=== PATIENT | male | born 1940 | race Caucasian/White ===

== ENCOUNTER 2016-10-21 22:06 | Inpatient (IN) | payer OTHER ==
[~2016-10-21] VITALS: Ht 180.3 cm; Wt 88.0 kg
[~2016-10-21 22:06] MED LIST: ASPIR LOW81 MG PO; ATENOLOL50 MG PO; B COMPLEX; CARDURA2 MG PO; COMBIVENT1 AR1 IH; COR200 PO; COZAAR100 MG PO; FISH OIL; HCTZ PO; HUMALOG PEN100 U/ML; INVOKANA300 MG PO; JANUVIA100 M1 PO; LEVAQUIN750 MG/150 IV; LIPI20 PO; MAGNESIUM; MULTI VITAMINS1 TA1 PO; MYCP TOP; NASONEX0.05 MG/Ac; NIASPAN500 MG PO; PLA75 PO; PROT40I IV; STARLIX120 MG PO; VAN1PM IV; VITAMIN D32000 I2 PO; XARELTO20 M1 PO; ZOS3PM IV
--- NOTE | 2016-10-21 22:35 | NUR ---
BIB W/ C/O 3 DAYS OF GENERALIZED WEAKNESS, "EXHAUSTION" & SLEEPING ALL DAY. PT HAS HAD A COUGH X 2 WEEKS, PRODUCTIVE OF YELLOWISH BROWN SPUTUM. PT IS FORMER SMOKER X 35 YEARS, QUIT IN 2000 AFTER CARDIAC BYPASS. PT C/O CONSTANT SOB X 3-4 DAYS, PER "HE CAN JUST BE SITTING THERE TALKING & GET OUT OF BREATH." PT C/O LT LEG/FOOT SWELLING & LT ANKLE PAIN SINCE THURSDAY. DENIES INJURY. WAS @ THE [employer] WHEN HE NOTICED IT. PT HAS CHRONIC PAIN LT BUTTOCK "FROM [place]" W/ RECURRENT ABSCESS WHICH HAS REQUIRED SURGICAL DRAINAGE IN THE PAST. PT HAS SMALL LESS THAN DIME-SIZED SCAB LT INNER BUTTOCK APPROX 1-2" FROM RECTUM.
--- NOTE | 2016-10-21 22:41 | NUR ---
MSE BY DR. STONER.
--- NOTE | 2016-10-21 22:59 | NUR ---
PT GIVEN URINAL TO PROVIDE URINE SAMPLE.
[2016-10-21 23:11] LABS: PLATELET COUNT 161 x10^3mcL (130-400)
[2016-10-21 23:14] LABS: BASOPHIL % 0 % (0-2); RED CELL DISTRIBUTION WIDTH 18.6 % (11.5-14.5)
[2016-10-21 23:16] LABS: CALCIUM 9.3 mg/dL (8.5-10.1); CARBON DIOXIDE 25.9 mmol/L (21-32); CHLORIDE SERUM 116 mmol/L (98-107); CREATININE SERUM 1.7 mg/dL (0.7-1.3); GLUCOSE SERUM 263 mg/dL (74-106); POTASSIUM SERUM 3.5 mmol/L (3.5-5.1); SODIUM SERUM 157 mmol/L (136-145)
[2016-10-21 23:21] LABS: ALKALINE PHOSPHATASE 134 U/L (46-116); ALT/SGPT 40 U/L (16-63); AST/SGOT 33 U/L (15-37); BILIRUBIN TOTAL 0.5 mg/dL (0.20-1.00); TOTAL PROTEIN, SERUM 6.9 g/dL (6.4-8.2)
--- NOTE | 2016-10-21 23:22 | NUR ---
DR. STONER @ BEDSIDE DISCUSSING CBC RESULTS W/ PT & .
--- NOTE | 2016-10-21 23:29 | NUR ---
SALINE LOCK PLACED, TYPE & CROSS DRAWN.
[2016-10-21 23:32] LABS: CK-MB 0.8 ng/mL (0-3.6)
--- NOTE | 2016-10-21 23:45 | NUR ---
LEFT FOR THE NIGHT.
[2016-10-21 23:49] LABS: ALBUMIN 2.8 g/dL (3.4-5.0)
[2016-10-22] VITALS (9 sets, daily range): BP systolic 102–128; BP diastolic 40–52
--- NOTE | 2016-10-22 00:27 | NUR ---
BILAT NARES SWABBED FOR MRSA SCREENING.
[2016-10-22 00:30] LABS: rbc morphology (normal/abnorm) ABNORMAL (NORMAL)
--- NOTE | 2016-10-22 00:39 | NUR ---
CALLED [facility] @ [phone] TO COMPLETE PT'S MED REC. PT USES [facility].
[2016-10-22] MEDS ORDERED: COMINH INH (00:42)
[2016-10-22] MEDS ORDERED: ATORVASTATIN CA40 M1 PO (00:43)
[2016-10-22] MEDS ORDERED: LOSARTAN POTAS100 M1 PO (00:45)
[2016-10-22] MEDS ORDERED: HUMALOG100 U/ML SQ (00:45)
[2016-10-22] MEDS ORDERED: PHOSPHA 250 NEU1 TAB PO (00:46)
[2016-10-22] MEDS ORDERED: PACERONE200 MG PO (00:46)
[2016-10-22] MEDS ORDERED: TOPROL XL25 MG PO (00:46)
[2016-10-22] MEDS ORDERED: DOXAZOSIN MESYLA2 MG PO (00:46)
[2016-10-22] MEDS ORDERED: ATRNS6 INH (00:47)
[2016-10-22] MEDS ORDERED: VITAMIN D32000 I2 PO (00:47)
[2016-10-22] MEDS ORDERED: ALLEGRA ALLERG180 M1 PO (00:47)
[2016-10-22] MEDS ORDERED: JARDIANCE25 MG PO (00:47)
--- NOTE | 2016-10-22 01:19 | NUR ---
PT & SIGNED BLOOD CONSENT. BLOOD DOUBLE CHECKED W/ LAB & W/ LESLIE MONTERROSO. 1ST UNIT [facility] BEGUN, DONOR #[id number]
[2016-10-22 01:25] LABS: CHOLESTEROL/HDL RATIO 3.4
[2016-10-22 01:34] LABS: FREE T4 1.37 ng/dL (0.76-1.46); FREE THYROXINE INDEX 3.5 ug/dL (1.4-4.5); T4(THYROXINE) 9.8 ug/dL (4.7-13.3)
--- NOTE | 2016-10-22 01:34 | NUR ---
REPORT CALLED TO NATHAN.
--- NOTE | 2016-10-22 02:40 | NUR ---
BLOOD INFUSING WITHOUT SIGN OF REACTION. TO TELE ON MONITOR W/ LESLIE MONTERROSO.
--- NOTE | 2016-10-22 03:06 | NUR ---
PT AAOX4. LUNGS CTA ON RA. PT ARRIVED WITH BLOOD TRANSFUSING IN LAC, 20G. PT TOLERATING TRANFUSION WELL. ABD IS SOFT, ROUND, NON-TENDER, BS ACTIVE IN ALL FOUR QUADRANTS. PULSES PRESENT. THERE IS +2 PITTING EDEMA IN BOTH FEET. THE PT IS ON TELE 16 NSR WITH A BBB, HR 81. PT REQUESTED TO GET GLUCOSE CHECKED. BS 200. NOTIFIED DR. BOYD. DR BOYD. ORDERED TO GIVE 3 U REG INSULIN TO COVER. CALL LIGHT WITHIN REACH. WILL CONTINUE TO MONITOR.
--- NOTE | 2016-10-22 03:16 | NUR ---
CONSENT FOR BLOOD SIGNED AND IN CHART.
--- NOTE | 2016-10-22 04:17 | NUR ---
URINE SENT DOWN TO LAB
--- NOTE | 2016-10-22 04:20 | NUR ---
PT TROPONIN IS 0.461, DR. BOYD MADE AWARE, STATED THAT IT'S OK.
[2016-10-22 04:24] LABS: microscopic required? NO
[2016-10-22 04:33] LABS: urine erythrocyte NEGATIVE (NEGATIVE)
--- NOTE | 2016-10-22 05:09 | NUR ---
VITALS AFTER THE TRANSFUSION WAS COMPLETED AT 0507: 98.5, 74, 102/40 (70), 18, 96%
--- NOTE | 2016-10-22 06:24 | NUR ---
PT IS RESTING IN BED WITH NO SIGNS OF ACUTE DISTRESS. THE BED IS IN THE LOWEST POSITION AND THE CALL LIGHT IS WITHIN REACH. THE PT VOIDED A TOTAL OF 550 ML OF URINE IN THE URINAL. WILL ENDORSE TO MORNING SHIFT/.
[2016-10-22 08:06] LABS: CALCIUM 9.3 mg/dL (8.5-10.1); CARBON DIOXIDE 25.8 mmol/L (21-32); CHLORIDE SERUM 118 mmol/L (98-107); CREATININE SERUM 1.5 mg/dL (0.7-1.3); GLUCOSE SERUM 186 mg/dL (74-106); MAGNESIUM 2.7 mg/dL (1.8-2.4); PHOSPHOROUS 4.2 mg/dL (2.5-4.9); POTASSIUM SERUM 3.6 mmol/L (3.5-5.1)
[2016-10-22 08:09] LABS: BASOPHIL % 0 % (0-2); RED CELL DISTRIBUTION WIDTH 18.4 % (11.5-14.5)
[2016-10-22 08:12] LABS: PLATELET COUNT 139 x10^3mcL (130-400)
[2016-10-22 08:13] LABS: rbc morphology (normal/abnorm) ABNORMAL (NORMAL)
[2016-10-22 08:24] LABS: SODIUM SERUM 162 mmol/L (136-145)
--- NOTE | 2016-10-22 08:45 | NUR ---
DR ISABEL MADE AWARE OF PT'S TROP LEVEL AT 0.498,AND H/H OF7.4/24, DURING AM ROUNDS. PT IN NO DISTRESS,DENIES C.P.,NO SOB. REASSURED,REINFORCE USE OF CALL LIGHT AT BEDSIDE. MEDICAL TEAM SAW AND DISCUSSED PLAN OF CARE.
[2016-10-22 09:46] LABS: RED BLOOD CELLS 3.15 M/mm3 (4.52-5.90)
[2016-10-22 09:47] LABS: TOTAL IRON BINDING CAPACITY 358 ug/dL (250-450)
[2016-10-22 09:54] LABS: IRON 14 ug/dL (65-170)
[2016-10-22 11:44] LABS: T3 TOTAL 0.64 ng/mL
--- NOTE | 2016-10-22 20:00 | NUR ---
PATIENT AWAKE, ALERT, ORIENTED X4 IN BED. AT THE BEDSIDE. RESPIRATION EVEN AND UNLABORED, ON ROOM AIR. ONGOING 0.45% NS AT 100 CC/HR INFUSING WELL AT THE L AC. PRESENCE OF +2 EDEMA TO BLE. VOIDING FREELY, USES URINAL. GENERALIZED WEAKNESS. SKIN DRY AND INTACT. ON TELE #16. WILL CONTINUE TO MONITOR.
[2016-10-23 06:05] VITALS: BP 105/52
--- NOTE | 2016-10-23 06:12 | NUR ---
PATIENT RESTING IN BED. RESPIRATION EVEN AND UNLABORED, ON ROOM AIR. IV SITE NO SIGNS OF INFILTRATION. ASSISTED WITH NEEDS. SAFETY OBSERVED. PLACED CALL LIGHT WITHIN REACH AT ALL TIMES.
[2016-10-23 06:45] LABS: BASOPHIL % 0.5 % (0-2)
[2016-10-23 06:49] LABS: CALCIUM 9.1 mg/dL (8.5-10.1); CARBON DIOXIDE 25.8 mmol/L (21-32); CHLORIDE SERUM 122 mmol/L (98-107); CREATININE SERUM 1.3 mg/dL (0.7-1.3); GLUCOSE SERUM 148 mg/dL (74-106); MAGNESIUM 2.5 mg/dL (1.8-2.4); PHOSPHOROUS 3.6 mg/dL (2.5-4.9); POTASSIUM SERUM 3.7 mmol/L (3.5-5.1)
[2016-10-23 06:55] LABS: PLATELET COUNT 117 x10^3mcL (130-400); RED CELL DISTRIBUTION WIDTH 18.6 % (11.5-14.5)
[2016-10-23 06:57] LABS: SODIUM SERUM 163 mmol/L (136-145)
[2016-10-23 09:04] VITALS: BP 125/51
[2016-10-23 09:18] LABS: rbc morphology (normal/abnorm) ABNORMAL (NORMAL)
[2016-10-23 09:19] LABS: schistocyte (helmet cell) 1+
[2016-10-23 12:45] VITALS: BP 133/49
[2016-10-23 18:01] LABS: CALCIUM 8.7 mg/dL (8.5-10.1); CREATININE SERUM 1.3 mg/dL (0.7-1.3); GLUCOSE SERUM 198 mg/dL (74-106)
[2016-10-23 18:12] LABS: CHLORIDE SERUM 114 mmol/L (98-107); POTASSIUM SERUM 3.3 mmol/L (3.5-5.1); SODIUM SERUM 158 mmol/L (136-145)
[2016-10-23 18:13] VITALS: BP 120/43
--- NOTE | 2016-10-23 20:22 | NUR ---
PT CURRENTLY RESTING IN BED, NO ACUTE DISTRESS. A/O X4. TELE #16 SHOWING SINUS RHYTHM, DENIES CHEST PAIN. PULSES PALPABLE IN ALL EXTREMITIES, BLE EDEMA +2 NOTED. LUNG SOUNDS CTA BILATERALLY. BOWEL SOUNDS ACTIVE, LAST BM 10/20/16. VOIDING WELL. MILD GENERALIZED WEAKNESS NOTED, AMBULATORY. SKIN INTACT. DENIES PAIN AT THIS TIME. IV PATENT AND INTACT. BED IN LOWEST POSITION, SIDE RAILS UP X2, SCDS IN PLACE, CALL LIGHT WITHIN REACH. WILL CONTINUE TO MONITOR.
[2016-10-23 21:02] VITALS: BP 102/51
--- NOTE | 2016-10-24 01:49 | NUR ---
PT CURRENTLY RESTING IN BED, NO ACUTE DISTRESS. WILL CONTINUE TO MONITOR.
[2016-10-24 05:33] VITALS: BP 114/46
--- NOTE | 2016-10-24 06:00 | NUR ---
PT SLEPT PERIODICALLY THROUGHOUT NIGHT, NO ACUTE DISTRESS. ALL NEEDS MET AND ATTENDED TO. NO SIGNIFICANT CHANGES. IV PATENT AND INTACT. BED IN LOWEST POSITION, SIDE RAILS UP X2, SCDS IN PLACE, CALL LIGHT WITHIN REACH. WILL ENDORSE CARE TO ONCOMING NURSE.
[2016-10-24 06:36] LABS: CALCIUM 8.5 mg/dL (8.5-10.1); CARBON DIOXIDE 25.6 mmol/L (21-32); CHLORIDE SERUM 120 mmol/L (98-107); CREATININE SERUM 1.3 mg/dL (0.7-1.3); GLUCOSE SERUM 147 mg/dL (74-106); MAGNESIUM 2.1 mg/dL (1.8-2.4); PHOSPHOROUS 2.8 mg/dL (2.5-4.9); POTASSIUM SERUM 3.2 mmol/L (3.5-5.1); SODIUM SERUM 155 mmol/L (136-145)
[2016-10-24 07:15] LABS: BASOPHIL % 0.2 % (0-2)
[2016-10-24 07:24] LABS: PLATELET COUNT 110 x10^3mcL (130-400); RED CELL DISTRIBUTION WIDTH 19.3 % (11.5-14.5)
--- NOTE | 2016-10-24 07:25 | NUR ---
AAO X4.DENIES ANY PAIN/DISCOMFORT.LUNGS CLEAR.ON SR ON THE MONITOR.IVF 1/2 NS @ 100 ML/HR INFUSING WELL.ALSO D5W AT 50 ML/HR INFUSING WELL.CALL LIGHT WITHIN REACH.INSTRUCTED TO CALL FOR ANY PAIN/DISCOMFORT.PT VERBALIZES UNDERSTANDING.WILL CONTINUE TO MONITOR.
[2016-10-24 07:26] LABS: rbc morphology (normal/abnorm) ABNORMAL (NORMAL); schistocyte (helmet cell) 1+
--- NOTE | 2016-10-24 08:30 | NUR ---
AND MEDICINE TEAM AT BEDSIDE.INFORMED PT THAT HE WILL STAY TODAY AND HE WILL HAVE EGD AND COLONOSCOPY TOMORROW.PT COOPERATIVE WITH THE PLAN OF CARE.
[2016-10-24 09:27] VITALS: BP 112/49
--- NOTE | 2016-10-24 10:28 | NUR ---
MOVIPREP STARTED ORDERED.
--- NOTE | 2016-10-24 10:30 | NUR ---
CONSENT SIGNED FOR EGD AND COLONOSCOPY.PRE OP CHECKLIST STARTED.
[2016-10-24 13:57] VITALS: BP 121/54
[2016-10-24 16:58] VITALS: BP 119/50
--- NOTE | 2016-10-24 17:47 | NUR ---
PT HAD A TOTAL OF 6 BM. BM IS NOW LIQUID BLACK STOOL PER PT.
--- NOTE | 2016-10-24 18:26 | NUR ---
no significant change noted.will endorse to next shift.
--- NOTE | 2016-10-24 20:19 | NUR ---
SHIFT ASSESSMENT DONE, AAO X4 VERBAL NOT IN DISTRESS, WITH GEN WEAKNESS PALE LOOKING, NO ACTIVE BLEEDING, IVF D5W @ 50CC/HR IV ACCESS @ LT HAND PATENT NON INFIL, PT ON BOWEL PREP FOR EGD IN AM HAS BM X5 STILL NOT CLEAR, WILL CONT TO GIVE MOVIPREP, SR IN THE MONITOR TELE #16 WITH OCC PVC'S NO CP OR PRESSURE, FAMILY AT BEDSIDE FOR VISIT, CONT TO MONITOR AND PROCEED TO CURRENT PLAN OF CARE.
[2016-10-24 21:01] VITALS: BP 109/45
--- NOTE | 2016-10-24 22:45 | NUR ---
PT NOTED HAVING TRIGEMINY WITH PVC'S IN THE MONITOR, DENIES CP OR PRESSURE, ASYMTOMATIC BP 94/62 AMBULATES TO THE BATHROOM HAVING BM ON BOWEL PREP, MD AWARE NNO AT THIS TIME.
[2016-10-25 06:23] VITALS: BP 105/49
--- NOTE | 2016-10-25 06:34 | NUR ---
BM LIGHT BROWN WATERY, ON BOWEL PREP, DENIES PAIN NOT IN DISTRESS, SLEEPING INTERMITTENT AT NIGHT, SR WITH BBB IN THE MONITOR, IVF INFUSING WELL, STILL WITH GEN WEAKNESS, CONT TO MONITOR.
--- NOTE | 2016-10-25 07:16 | NUR ---
PT DOWN VIA BED TO GI LAB FOR COLONOSCOPY, REPORT GIVEN TO GI RN.
[2016-10-25 07:22] LABS: CALCIUM 8.2 mg/dL (8.5-10.1); CARBON DIOXIDE 21.3 mmol/L (21-32); CHLORIDE SERUM 116 mmol/L (98-107); GLUCOSE SERUM 142 mg/dL (74-106); MAGNESIUM 1.9 mg/dL (1.8-2.4); PHOSPHOROUS 2.6 mg/dL (2.5-4.9); POTASSIUM SERUM 3.3 mmol/L (3.5-5.1); SODIUM SERUM 150 mmol/L (136-145)
--- NOTE | 2016-10-25 07:30 | NUR ---
GOT REPORT FROM [employer]. PT WAS TAKEN TO GI LAB FOR EGD AND COLONOSCOPY.
[2016-10-25 07:47] LABS: BASOPHIL % 0.3 % (0-2)
[2016-10-25 07:50] LABS: PLATELET COUNT 99 x10^3mcL (130-400); RED CELL DISTRIBUTION WIDTH 19.3 % (11.5-14.5)
[2016-10-25 07:54] LABS: rbc morphology (normal/abnorm) ABNORMAL (NORMAL)
[2016-10-25 07:55] LABS: schistocyte (helmet cell) 1+
[2016-10-25 07:56] LABS: ovalocyte/elliptocyte 1+
[2016-10-25 09:00] VITALS: BP 128/90
--- NOTE | 2016-10-25 09:02 | NUR ---
PT BACK FROM PROCEDURE FOR EGD AND COLONOSCOPY. PT IS AWAKE, ALERT, ORIENTED X 3. PT NO COMPLAIN OF PAIN AT THIS TIME. PT STATED FEELING BETTER COMPARED YESTERDAY. PT BREATHING ON O2 2L VIA NC, EVEN, UNLABORED. PT'S VS CHECKED: BP 128/90, HR 68 BPM, O2 SAT 96% ON O2 2L VIA NC. TEMP 97.9. WILL CONITNUE TO MONITOR.
--- NOTE | 2016-10-25 10:46 | NUR ---
PT'S CAME AT BED SIDE. ASSIST PT GET OUT OF BED, SITTING ON CHAIR. PT STATED MILD DIZZINESS. O2 SAT 99% ON RA.
[2016-10-25 12:13] VITALS: BP 122/47
--- NOTE | 2016-10-25 16:04 | NUR ---
PHYSICAL THERAPY DAILY NOTES CO-SIGN All documentation done by the Dam[employer] for 10/25/16 has been reviewed. I agree with the documentation. Reviewed/Co-Signed by: Jaya Melissa PT Documentation Done by:SANDRA MARI HEMODIALYSIS TECHNICIAN POC REVIEWED W/ HEMODIALYSIS TECHNICIAN; WILL BENEFIT W/ P.T. DURING ACUTE STAY.
[2016-10-25 17:25] VITALS: BP 116/48
--- NOTE | 2016-10-25 18:29 | NUR ---
THERE IS TWO SPOTS SKIN ABRASION ON PT'S LEFT BUTTOCK. SWELLING AND REDNESS ON LEFT ANKLE THAT DR. NERI IS AWARE. PICTURES TAKEN. PT SITTING AT BED SIDE EATING DINNER. PT NO COMPLAIN OF PAIN. PT BREATHING ON RA, EVEN, UNLABORED. REMIND PT TO ELEVATE LLE WHEN HE IS BACK TO BED. IV SITE PATENT, INTACT. IVF 1/2NS W/ 20MEQ KCL INFUSING AT 100 ML/ HR PER ORDER.
--- NOTE | 2016-10-25 20:41 | NUR ---
RECEIVED IN BED AWAKE VERBAL DENIES PAIN S/P COLONOSCOPY / EGD WITH CAUTERIZATION AND CLIPPED IN THE CECUM, NO BLEEDING, NO DISTRESS, LUNGS CTA WITH GEN WEAKNESS AMBULATES WITH ASSIST, SR IN THE MONITOR WITH BBB OCC PVC'S AND ELEVATED TWAVE NO CP OR PRESSURE, LT ANKLE WITH REDNESS AND SWELLING WARM TO TOUCH, TRACED EDEMA TO RLE, PALPABLE PERIPHERAL PULSES, IVF 1/2 NS +20K+ INFUSING @ 100CC IV ACCESS @ LH PATENT NON INFIL, SHIFT ASSESSMENT DONE, ATTENDED NEEDS, DR WEIR AWARE OF PT'S LT ANKLE REDNESS, AWAITING FOR ORDERS CONT TO MONITOR.
[2016-10-25 21:45] VITALS: BP 114/48
[2016-10-26] VITALS (7 sets, daily range): BP systolic 96–126; BP diastolic 32–60
--- NOTE | 2016-10-26 02:27 | NUR ---
ASLEEP NO S/SX OF PAIN OR DISCOMFORTS, NOT ON DISTRESS, IVF CHANGED BACK TO D5W @ 80CC/HR IV ACCESS @ LH PATENT NON INFIL, SCD'S ON FOR DVT PROPHYLAXIS CONT TO MONITOR AND PROCEED TO CURRENT PLAN OF CARE.
[2016-10-26 06:41] LABS: MAGNESIUM 1.7 mg/dL (1.8-2.4); PHOSPHOROUS 2.2 mg/dL (2.5-4.9)
[2016-10-26 06:50] LABS: CALCIUM 8.2 mg/dL (8.5-10.1); CARBON DIOXIDE 18.8 mmol/L (21-32); CHLORIDE SERUM 113 mmol/L (98-107); CREATININE SERUM 0.9 mg/dL (0.7-1.3); GLUCOSE SERUM 180 mg/dL (74-106); POTASSIUM SERUM 3.5 mmol/L (3.5-5.1); SODIUM SERUM 145 mmol/L (136-145)
[2016-10-26 06:58] LABS: BASOPHIL % 0.1 % (0-2)
[2016-10-26 07:01] LABS: PLATELET COUNT 79 x10^3mcL (130-400); RED CELL DISTRIBUTION WIDTH 20.2 % (11.5-14.5)
--- NOTE | 2016-10-26 07:27 | NUR ---
NO SIGNIFICANT CHANGES DURING THE SHIFT, LT HAND IV ACCESS INFIL, TRIED TO GET NEW IV ACCESS BUT IN NO SUCCESS PT IS A HARD STICK, ENDORSED TO INCOMING SHIFT FOR F/U, DUE MEDS GIVEN, PT AMBULATED TO THE BATHROOM SLOW BUT STEADY BALANCE CONT TO MONITOR.
--- NOTE | 2016-10-26 07:36 | NUR ---
PT SEEN REST ON BED. PT COMPLAIN OF SOB AND COLD. I PROVIDED O2 2L VIA NC TO MANAGE SOB. WARM BLANKET PROBIDED. PT'S IV SITE IS OUT, NEED TO REINSERT NEW IV.
--- NOTE | 2016-10-26 07:55 | NUR ---
[employer] REPORT PT FEELING VERY WEAK AND UNABLE SITTING UP. CHECKED PT. PT WAS UNABLE TO REMAIN SITTING POSITION BY HIMSELF, SOB NOTED, INCREASED O2 TO 3L VIA NC. PT'S VS CHECKED 101/47, HR 96 BPM, TEMP 102.9. O2 SAT 100% ON O2 3L VIA NC. TYLENOL 650 MG GIVEN, AND START COOLING MEASURES. WILL CONTINUE TO MONITOR.
--- NOTE | 2016-10-26 08:10 | NUR ---
PROMOTIONAL REPRESENTATIVE REPORTED PT'S HR RHYTHM RUNNING V-TACH. CHECKED PT. PT IS TRING TO SIT UP BUT UNABLE TO SIT UP BY HIMSELF 2/2 WEAKNESS. PT IS ON AWKWARD POSITION AND TRYING TO REPOSITION SELF. ASSISTED PT REPOSITION AND PUT O2 BACK ON. PT DENIED CHEST PAIN BUT COMPLAIN OF WHOLE BODY ACHING AND DISCOMFORT. MADE CHARGE NURSE AWARE AND DR. NERI AWARE. KEEP MONITORING PT.
--- NOTE | 2016-10-26 12:53 | NUR ---
MADE DR. NERI AWARE PT'S BP 96/32 (66), HR 84 BPM, THE LOWEST ONE BP 88/35 MAP 52. PUT PT ON [place] POSITION, WILL RECHECK BP .
--- NOTE | 2016-10-26 15:24 | NUR ---
CHECKED PT'S TEMP 102.2. TYLENOL GIVEN, COOLING MEASURES REMAINING. WILL CONTINUING TO MONITOR.
--- NOTE | 2016-10-26 18:40 | NUR ---
PT'S AT BED SIDE. RECHECKED PT'S TEMP 99.5, COOLING MEASURES REMAINING. PT NO COMPLAIN OF PAIN AT THIS TIME. PT BREATHING ON O2 2L VIA NC AT THIS TIME. EVEN, UNLABOORED. IV SITE PATENT, INTACT. IVF NS 100 ML/HR IS INFUSING PER ORDER.
--- NOTE | 2016-10-26 19:58 | NUR ---
PT IS A/O X4, VERBAL RESPONSIVE, ABLE TO TELL WHAT HE NEEDS ,LUNG SOUND CLEAR BILATERAL, NO COUGH, NO SOB, PT IS ON 2L/MIN O2 VIA NC. PO2 96%, PT IS ON TELE 16, NSR, BOWEL SOUND PRESENT ALL 4 QUADRANTS, NO DISTENTION, NO TENDER. PEDAL PULSE PRESENT BOTH FEET, RIGHT ANKLE REDNESS AND SWELLING, ALL ADLS ASSIST, IV AT LEFT FA, NO LEAKING, NO INFILTRATION. PT APPEARING VERY WEAK AT THIS TIME, ALL ADLS ASSIST. ALL NEED MET, CALL LIGHT IN REACH, WILL CONTINUE TO MONITOR.
--- NOTE | 2016-10-27 00:24 | NUR ---
PT HAD FEVER 101.1 AT 2200, TYLENOL WAS GIVEN AT 2218, AND ALSO APPLY THE COOLING MEASURE, RECHECK THE TEMP. PT'S TEMP STILL 101.1, TALKED TO DR. OLIVARES, ASLO MENSTION ABOUT THE LEFT ANKLE REDNES AND SWELLING, MADE AWARE, WAITING FOR NEW ORDER.
--- NOTE | 2016-10-27 02:22 | NUR ---
RECHECK THE TEMP 99.3, INFORM DR. OLIVARES. KEEPING THE COOLING MEASURE ON THE PT. WILL CONTNIUE TO MONITOR THE PT.
--- NOTE | 2016-10-27 05:20 | NUR ---
PT IS SLEEPING, AWAKE BY TOUCH, DENY ANY RESPIRATORY DISTESS, DENY ANY PAIN OR DISCOMFORT, IV AT RIGHT WIRST, NO LEAKING, NO INFILTRATION, ALL ADLS ASSIST, ALL NEED MET, CALL LIGHT IN REACH, WILL CONTINUE TO MONITOR.
[2016-10-27 05:48] LABS: CARBON DIOXIDE 22.4 mmol/L (21-32); CHLORIDE SERUM 113 mmol/L (98-107); CREATININE SERUM 1.1 mg/dL (0.7-1.3); GLUCOSE SERUM 188 mg/dL (74-106); MAGNESIUM 2.2 mg/dL (1.8-2.4); PHOSPHOROUS 2.5 mg/dL (2.5-4.9); SODIUM SERUM 142 mmol/L (136-145)
[2016-10-27 05:56] LABS: POTASSIUM SERUM 2.9 mmol/L (3.5-5.1)
--- NOTE | 2016-10-27 06:02 | NUR ---
CALLED AND INFORM DR. YORK REGARDING THE POTASSIUM 2.9, MADE AWARE, WAITIN FOR NEW ORDER
[2016-10-27 06:13] VITALS: BP 102/53
[2016-10-27 06:17] LABS: BASOPHIL % 0 % (0-2)
--- NOTE | 2016-10-27 06:33 | NUR ---
REPORT TO DR. NERI. REGARDING PT HGB 6.8, DR. CHOI AWARE, WILL CONTINUE TO MONTIOR THE PT.
[2016-10-27 06:46] LABS: rbc morphology (normal/abnorm) ABNORMAL (NORMAL)
[2016-10-27 06:59] LABS: PLATELET COUNT 84 x10^3mcL (130-400)
[2016-10-27 07:00] LABS: RED CELL DISTRIBUTION WIDTH 22.1 % (11.5-14.5)
--- NOTE | 2016-10-27 08:00 | NUR ---
RECEIVED PT IN BED ALERT AND ORIENTED X4. TELE #16, NSR WITH BBB. DENIES CHEST PAIN. BREATHING EVEN AND UNLABORED WITH O2 VIA NC AT 2L. LUNG SOUNDS CLEAR. SOB NOTED WITH EXERTION. DENIES ANY GI UPSET. VOIDS FREELY. AMBULATORY WITH SLOW STEADY GAIT. 2+ EDEMA NOTED TO R FOOT AND LLE. REDNESS NOTED TO L ANKLE AREA. SMALL HEALING WOUND NOTED TO L BUTTOCKS. INSTRUCTED TO USE CALL LIGHT WHEN IN NEED OF ANY ASSISTANCE.
[2016-10-27 09:24] VITALS: BP 102/61
[2016-10-27] MEDS ORDERED: CIPRO500 MG PO (09:59)
[2016-10-27] MEDS ORDERED: LAC PO (10:00)
[2016-10-27 10:31] VITALS: BP 102/61
[2016-10-27] MEDS ORDERED: NATURAL IRON65 MG PO (13:59)
--- NOTE | 2016-10-27 14:57 | NUR ---
AFEBRILE. VITAL SIGNS STABLE. IV AND TELE DC'D. DISCHARGE INSTRUCTIONS AND PRESCRIPTIONS GIVEN AND EXPLAINED TO PT AND HIS , VERBALIZED UNDERSTANDING.
--- NOTE | 2016-10-27 15:13 | NUR ---
PT DISCHARGED HOME, BROUGHT OFF FLOOR VIA [facility] BY STUDENT.
== END 2016-10-27 15:10 | disposition home or self-care (01) | DRG 299 ==
LOC: ED 22:06 → DU 23:52
PROVIDERS: Emergency Medicine; Family Medicine; Internal Medicine; Internal Medicine Nephrology; ADMIT Family Medicine
PROC: 30233N1 Transfusion of Nonautologous Red Blood Cells into Peripheral Vein, Percutaneous Approach (ICD-10-PCS; 2016-10-22)
PROC: 0W3P8ZZ Control Bleeding in Gastrointestinal Tract, Via Natural or Artificial Opening Endoscopic (ICD-10-PCS; principal; 2016-10-25 07:30)
PROC: 0DB68ZX Excision of Stomach, Via Natural or Artificial Opening Endoscopic, Diagnostic (ICD-10-PCS; 2016-10-25 07:30)
DX: Q27.33 Arteriovenous malformation of digestive system vessel (principal); N17.0 Acute kidney failure with tubular necrosis; E43 Unspecified severe protein-calorie malnutrition; D62 Acute posthemorrhagic anemia; I24.8 Other forms of acute ischemic heart disease; E87.0 Hyperosmolality and hypernatremia; E87.2 Acidosis; K29.70 Gastritis, unspecified, without bleeding; K57.30 Diverticulosis of large intestine without perforation or abscess without bleeding; E86.0 Dehydration; E11.65 Type 2 diabetes mellitus with hyperglycemia; E11.21 Type 2 diabetes mellitus with diabetic nephropathy; I25.10 Atherosclerotic heart disease of native coronary artery without angina pectoris; J45.909 Unspecified asthma, uncomplicated; Z68.27 Body mass index [BMI] 27.0-27.9, adult; Z87.891 Personal history of nicotine dependence; Z86.73 Personal history of transient ischemic attack (TIA), and cerebral infarction without residual deficits; Z95.1 Presence of aortocoronary bypass graft; Z79.01 Long term (current) use of anticoagulants; Z79.82 Long term (current) use of aspirin; Z79.4 Long term (current) use of insulin
CPT/HCPCS: 43235; 45378; 82962; 83880; 84439; 94150; 97116-GP; 97530-GP; J0696; J1200; J1610; J1817; J1885; J2250; J2310; J2916; J3010; J3475; J3480; J3490; J7030; J7040; J7050; J7060; J7613; J7620; P9016; Q0092

== ENCOUNTER 2016-12-13 18:22 | Inpatient (IN) | payer OTHER ==
[~2016-12-13] VITALS: Ht 180.3 cm; Wt 83.5 kg
[~2016-12-13 18:22] MED LIST changes: +ALLEGRA ALLERG180 M1 PO; +ATORVASTATIN CA40 M1 PO; +ATRNS6 INH; +CIPRO500 MG PO; +COMINH INH; +DOXAZOSIN MESYLA2 MG PO; +HUMALOG100 U/ML SQ; +JARDIANCE25 MG PO; +LAC PO; +LOSARTAN POTAS100 M1 PO; +NATURAL IRON65 MG PO; +PACERONE200 MG PO; +PHOSPHA 250 NEU1 TAB PO; +TOPROL XL25 MG PO
[2016-12-13 19:24] LABS: PLATELET COUNT 138 x10^3mcL (130-400)
[2016-12-13 19:26] LABS: ALKALINE PHOSPHATASE 136 U/L (46-116); ALT/SGPT 41 U/L (16-63); AST/SGOT 39 U/L (15-37); BILIRUBIN TOTAL 0.67 mg/dL (0.20-1.00); CALCIUM 9.2 mg/dL (8.5-10.1); CARBON DIOXIDE 27.4 mmol/L (21-32); CHLORIDE SERUM 108 mmol/L (98-107); CREATININE SERUM 1.3 mg/dL (0.7-1.3); PHOSPHOROUS 3.8 mg/dL (2.5-4.9); POTASSIUM SERUM 3.1 mmol/L (3.5-5.1); SODIUM SERUM 148 mmol/L (136-145); TOTAL PROTEIN, SERUM 6.8 g/dL (6.4-8.2); URIC ACID 6.8 mg/dL (3.5-7.2)
[2016-12-13 19:28] LABS: ALBUMIN 2.9 g/dL (3.4-5.0); CHOLESTEROL 121 mg/dL (<200); HDL CHOLESTEROL 31 mg/dL (40-60)
[2016-12-13 19:29] LABS: GLUCOSE SERUM 461 mg/dL (74-106)
[2016-12-13 19:36] LABS: BASOPHIL % 0 % (0-2)
[2016-12-13 19:40] LABS: rbc morphology (normal/abnorm) ABNORMAL (NORMAL)
[2016-12-13] MEDS ORDERED: ATORVASTATIN CA40 M1 PO (20:00)
[2016-12-13] MEDS ORDERED: CARDURA2 MG PO (20:00)
[2016-12-13] MEDS ORDERED: NATEGLINIDE120 M1 PO (20:01)
[2016-12-13] MEDS ORDERED: JANUVIA100 M1 PO (20:01)
[2016-12-13] MEDS ORDERED: PACERONE200 MG PO (20:01)
[2016-12-13] MEDS ORDERED: LANTUS SOLOS100 U/M1 SC (20:02)
[2016-12-13] MEDS ORDERED: PHOSPHA 250 NEU1 TAB PO (20:02)
[2016-12-13] MEDS ORDERED: ALLEGRA ALLERG180 M1 PO (20:02)
[2016-12-13] MEDS ORDERED: COMINH INH (20:02)
[2016-12-13] MEDS ORDERED: D-20001 TAB PO (20:03)
[2016-12-13] MEDS ORDERED: ATRNS6 (20:03)
[2016-12-13] MEDS ORDERED: NOVI SQ (20:04)
[2016-12-13] MEDS ORDERED: MAGNESIUM OXID400 MG (20:04)
[2016-12-13 20:56] VITALS: BP 129/48
[2016-12-13 21:03] VITALS: Ht 180.3 cm; Wt 83.5 kg
[2016-12-13 21:09] LABS: FREE T4 1.47 ng/dL (0.76-1.46); FREE THYROXINE INDEX 4.6 ug/dL (1.4-4.5); T4(THYROXINE) 11.5 ug/dL (4.7-13.3)
[2016-12-13 21:10] LABS: T3 TOTAL 0.72 ng/mL
[2016-12-13 21:50] LABS: microscopic required? YES; urine erythrocyte NEGATIVE (NEGATIVE)
[2016-12-13 21:51] VITALS: BP 129/48
[2016-12-13 23:19] LABS: BASOPHIL % 0.1 % (0-2)
[2016-12-13 23:34] LABS: PLATELET COUNT 129 x10^3mcL (130-400)
[2016-12-14 00:05] LABS: rbc morphology (normal/abnorm) ABNORMAL (NORMAL)
[2016-12-14 00:06] LABS: schistocyte (helmet cell) 1+; target cell (codocyte) 2+
[2016-12-14 05:44] VITALS: BP 118/54
[2016-12-14 06:34] LABS: CALCIUM 9.3 mg/dL (8.5-10.1); CARBON DIOXIDE 27.3 mmol/L (21-32); CHLORIDE SERUM 113 mmol/L (98-107); CREATININE SERUM 1.4 mg/dL (0.7-1.3); MAGNESIUM 2.2 mg/dL (1.8-2.4); PHOSPHOROUS 4.2 mg/dL (2.5-4.9); SODIUM SERUM 155 mmol/L (136-145)
[2016-12-14 06:42] LABS: PLATELET COUNT 164 x10^3mcL (130-400)
[2016-12-14 06:43] LABS: BASOPHIL % 0 % (0-2); RED CELL DISTRIBUTION WIDTH 25.7 % (11.5-14.5)
[2016-12-14 07:48] LABS: GLUCOSE SERUM 466 mg/dL (74-106)
[2016-12-14 13:05] VITALS: BP 100/54
[2016-12-14 17:44] VITALS: BP 146/52
[2016-12-14 21:55] VITALS: BP 127/49
[2016-12-15 07:07] LABS: BASOPHIL % 0.2 % (0-2); PLATELET COUNT 130 x10^3mcL (130-400)
[2016-12-15 07:09] LABS: RED CELL DISTRIBUTION WIDTH 24.5 % (11.5-14.5)
[2016-12-15 07:14] VITALS: BP 106/55
[2016-12-15 07:15] LABS: ALKALINE PHOSPHATASE 151 U/L (46-116); ALT/SGPT 49 U/L (16-63); AST/SGOT 58 U/L (15-37); BILIRUBIN TOTAL 0.4 mg/dL (0.20-1.00); CALCIUM 8.5 mg/dL (8.5-10.1); CARBON DIOXIDE 28.9 mmol/L (21-32); CHLORIDE SERUM 118 mmol/L (98-107); GLUCOSE SERUM 198 mg/dL (74-106); SODIUM SERUM 155 mmol/L (136-145); TOTAL PROTEIN, SERUM 6.2 g/dL (6.4-8.2)
[2016-12-15 07:25] LABS: rbc morphology (normal/abnorm) ABNORMAL (NORMAL)
[2016-12-15 07:46] LABS: MAGNESIUM 2.1 mg/dL (1.8-2.4)
[2016-12-15 07:52] LABS: ALBUMIN 2.5 g/dL (3.4-5.0)
[2016-12-15 07:53] LABS: POTASSIUM SERUM 2.9 mmol/L (3.5-5.1)
[2016-12-15 09:45] VITALS: BP 102/35
[2016-12-15 14:32] VITALS: BP 135/52
[2016-12-15 14:39] VITALS: BP 135/52
[2016-12-15 17:36] VITALS: BP 126/54
[2016-12-15 18:50] LABS: CALCIUM 8.4 mg/dL (8.5-10.1); CARBON DIOXIDE 26.3 mmol/L (21-32); CHLORIDE SERUM 114 mmol/L (98-107); CREATININE SERUM 1.1 mg/dL (0.7-1.3); GLUCOSE SERUM 322 mg/dL (74-106); SODIUM SERUM 149 mmol/L (136-145)
[2016-12-15 21:46] VITALS: BP 112/45
[2016-12-16] VITALS (7 sets, daily range): BP systolic 103–134; BP diastolic 48–62
[2016-12-16 06:38] LABS: CALCIUM 8.2 mg/dL (8.5-10.1); CARBON DIOXIDE 26.6 mmol/L (21-32); CHLORIDE SERUM 115 mmol/L (98-107); CREATININE SERUM 0.9 mg/dL (0.7-1.3); GLUCOSE SERUM 145 mg/dL (74-106); SODIUM SERUM 149 mmol/L (136-145)
[2016-12-16 06:45] LABS: POTASSIUM SERUM 2.8 mmol/L (3.5-5.1)
[2016-12-16 06:58] LABS: BASOPHIL % 0.3 % (0-2)
[2016-12-16 07:35] LABS: PLATELET COUNT 104 x10^3mcL (130-400)
[2016-12-16 10:13] LABS: ALKALINE PHOSPHATASE 202 U/L (46-116); ALT/SGPT 60 U/L (16-63); AST/SGOT 75 U/L (15-37); BILIRUBIN TOTAL 0.5 mg/dL (0.20-1.00); CALCIUM 8.2 mg/dL (8.5-10.1); CARBON DIOXIDE 24.5 mmol/L (21-32); CHLORIDE SERUM 113 mmol/L (98-107); CREATININE SERUM 0.9 mg/dL (0.7-1.3); GLUCOSE SERUM 252 mg/dL (74-106); POTASSIUM SERUM 3.1 mmol/L (3.5-5.1); SODIUM SERUM 147 mmol/L (136-145)
[2016-12-16 10:14] LABS: ALBUMIN 2.2 g/dL (3.4-5.0); TOTAL PROTEIN, SERUM 5.3 g/dL (6.4-8.2)
[2016-12-16 12:14] LABS: rbc morphology (normal/abnorm) ABNORMAL (NORMAL)
[2016-12-16 20:46] LABS: CALCIUM 8.5 mg/dL (8.5-10.1); CARBON DIOXIDE 23.6 mmol/L (21-32); CHLORIDE SERUM 114 mmol/L (98-107); CREATININE SERUM 1.1 mg/dL (0.7-1.3); GLUCOSE SERUM 308 mg/dL (74-106); POTASSIUM SERUM 4.4 mmol/L (3.5-5.1); SODIUM SERUM 146 mmol/L (136-145)
[2016-12-16 21:46] LABS: PLATELET COUNT 101 x10^3mcL (130-400)
[2016-12-16 21:47] LABS: BASOPHIL % 0.1 % (0-2)
[2016-12-16 21:48] LABS: rbc morphology (normal/abnorm) ABNORMAL (NORMAL); target cell (codocyte) 1+
[2016-12-17 06:25] VITALS: BP 114/50
[2016-12-17 07:14] LABS: CALCIUM 8.2 mg/dL (8.5-10.1); CARBON DIOXIDE 24.4 mmol/L (21-32); CHLORIDE SERUM 115 mmol/L (98-107); GLUCOSE SERUM 188 mg/dL (74-106); POTASSIUM SERUM 3.9 mmol/L (3.5-5.1); SODIUM SERUM 147 mmol/L (136-145)
[2016-12-17 07:28] LABS: BASOPHIL % 0.2 % (0-2)
[2016-12-17 07:45] LABS: PLATELET COUNT 120 x10^3mcL (130-400); RED CELL DISTRIBUTION WIDTH 22.5 % (11.5-14.5); rbc morphology (normal/abnorm) ABNORMAL (NORMAL)
[2016-12-17 07:46] LABS: target cell (codocyte) 1+
[2016-12-17 09:05] VITALS: BP 102/48
[2016-12-17] MEDS ORDERED: METP PO (09:18)
[2016-12-17] MEDS ORDERED: COL100 PO (09:19)
[2016-12-17] MEDS ORDERED: PRI20 PO (09:20)
[2016-12-17 13:02] VITALS: BP 128/52
[2016-12-17 16:49] VITALS: BP 125/53
[2016-12-17 21:08] VITALS: BP 105/49
[2016-12-18 05:25] VITALS: BP 105/50
[2016-12-18 07:46] LABS: BASOPHIL % 0 % (0-2); PLATELET COUNT 109 x10^3mcL (130-400); RED CELL DISTRIBUTION WIDTH 22.7 % (11.5-14.5)
[2016-12-18 07:52] LABS: CALCIUM 8.3 mg/dL (8.5-10.1); CARBON DIOXIDE 23.2 mmol/L (21-32); CHLORIDE SERUM 113 mmol/L (98-107); CREATININE SERUM 0.9 mg/dL (0.7-1.3); GLUCOSE SERUM 217 mg/dL (74-106); POTASSIUM SERUM 3.7 mmol/L (3.5-5.1); SODIUM SERUM 145 mmol/L (136-145)
[2016-12-18 08:18] VITALS: BP 92/44
[2016-12-18 08:29] LABS: rbc morphology (normal/abnorm) ABNORMAL (NORMAL)
[2016-12-18 09:45] VITALS: BP 115/52
[2016-12-18 14:07] VITALS: BP 104/50
[2016-12-18 17:22] VITALS: BP 137/55
[2016-12-18] MEDS ORDERED: CIPRO500 MG PO (18:04)
[2016-12-18] MEDS ORDERED: LAC PO (18:05)
[2016-12-18 18:25] VITALS: BP 137/55
[2016-12-18] MEDS ORDERED: PRI20 PO (19:08)
[2016-12-18] MEDS ORDERED: COL100 PO (19:08)
[2016-12-18] MEDS ORDERED: METP PO (19:08)
== END 2016-12-18 19:28 | disposition home or self-care (01) | DRG 377 ==
LOC: ED 18:22 → DU 19:53
PROVIDERS: Emergency Medicine; Family Medicine; Internal Medicine Gastroenterology; ADMIT Family Medicine
PROC: 30233N1 Transfusion of Nonautologous Red Blood Cells into Peripheral Vein, Percutaneous Approach (ICD-10-PCS; principal; 2016-12-14 10:30)
PROC: 0D5H8ZZ Destruction of Cecum, Via Natural or Artificial Opening Endoscopic (ICD-10-PCS; 2016-12-14 10:30)
DX: K92.1 Melena (principal); E43 Unspecified severe protein-calorie malnutrition; N17.0 Acute kidney failure with tubular necrosis; D62 Acute posthemorrhagic anemia; N39.0 Urinary tract infection, site not specified; I24.8 Other forms of acute ischemic heart disease; E87.0 Hyperosmolality and hypernatremia; B95.61 Methicillin susceptible Staphylococcus aureus infection as the cause of diseases classified elsewhere; Q27.33 Arteriovenous malformation of digestive system vessel; K29.70 Gastritis, unspecified, without bleeding; K57.30 Diverticulosis of large intestine without perforation or abscess without bleeding; I25.10 Atherosclerotic heart disease of native coronary artery without angina pectoris; E11.65 Type 2 diabetes mellitus with hyperglycemia; E11.51 Type 2 diabetes mellitus with diabetic peripheral angiopathy without gangrene; E87.6 Hypokalemia; Z86.73 Personal history of transient ischemic attack (TIA), and cerebral infarction without residual deficits; Z95.1 Presence of aortocoronary bypass graft; Z79.01 Long term (current) use of anticoagulants; Z79.4 Long term (current) use of insulin
CPT/HCPCS: 43235; 45378; 82962; 83880; 84439; 94150; C9113; J0696; J1200; J1610; J1815; J1940; J2250; J2310; J3010; J3370; J3480; J3490; J7030; J7050; J7070; J7620; P9016; Q0092; Q0163

== ENCOUNTER 2018-09-01 15:23 | Inpatient (IN) | payer OTHER ==
[~2018-09-01] VITALS: Ht 180.3 cm; Wt 86.6 kg
[~2018-09-01 15:23] MED LIST changes: +ATRNS6; +COL100 PO; +D-20001 TAB PO; +LANTUS SOLOS100 U/M1 SC; +MAGNESIUM OXID400 MG; +METP PO; +NATEGLINIDE120 M1 PO; +NOVI SQ; +PRI20 PO
[2018-09-01 15:25] VITALS: Ht 180.3 cm; Wt 86.6 kg
[2018-09-01 15:59] LABS: BASOPHIL % 1.1 % (0-2)
[2018-09-01 16:07] LABS: PLATELET COUNT 114 x10^3mcL (130-400); RED CELL DISTRIBUTION WIDTH 14.9 % (11.5-14.5)
[2018-09-01 16:13] LABS: CALCIUM 9.2 mg/dL (8.5-10.1); CARBON DIOXIDE 25.1 mmol/L (21-32); CHLORIDE SERUM 104 mmol/L (98-107); CREATININE SERUM 1.3 mg/dL (0.7-1.3); GLUCOSE SERUM 367 mg/dL (74-106); POTASSIUM SERUM 3.8 mmol/L (3.5-5.1); SODIUM SERUM 140 mmol/L (136-145)
[2018-09-01 16:17] LABS: ALKALINE PHOSPHATASE 282 U/L (46-116); ALT/SGPT 57 U/L (16-63); AST/SGOT 50 U/L (15-37); BILIRUBIN TOTAL 0.6 mg/dL (0.20-1.00); TOTAL PROTEIN, SERUM 7.1 g/dL (6.4-8.2)
[2018-09-01 16:18] LABS: ALBUMIN 2.4 g/dL (3.4-5.0)
[2018-09-01] MEDS ORDERED: CARDURA2 MG PO (19:12)
[2018-09-01] MEDS ORDERED: LANTUS SOLOS100 U/M1 SC (19:12)
[2018-09-01] MEDS ORDERED: DIG125 PO (19:12)
[2018-09-01] MEDS ORDERED: JANUVIA100 M1 PO (19:13)
[2018-09-01] MEDS ORDERED: ATORVASTATIN CA40 M1 PO (19:13)
[2018-09-01] MEDS ORDERED: ACARBOSE50 MG PO (19:14)
[2018-09-01] MEDS ORDERED: TRULICITY1.5 MG/0.5 SC (19:14)
[2018-09-01] MEDS ORDERED: HYDROCHLOROTHIA25 MG PO (19:15)
[2018-09-01] MEDS ORDERED: ALLEGRA ALLERG180 M1 PO (19:15)
[2018-09-01] MEDS ORDERED: VITAMIN D32000 I2 PO (19:15)
[2018-09-01] MEDS ORDERED: MAGNESIUM OXID400 MG PO (19:15)
[2018-09-01] MEDS ORDERED: COMINH INH (19:16)
[2018-09-01] MEDS ORDERED: NATURAL IRON65 MG PO (19:16)
[2018-09-01] MEDS ORDERED: NOVI (19:17)
[2018-09-01 19:53] LABS: microscopic required? NO
[2018-09-01 20:00] LABS: MAGNESIUM 1.6 mg/dL (1.8-2.4); PHOSPHOROUS 2.6 mg/dL (2.5-4.9)
[2018-09-01 20:04] LABS: urine erythrocyte NEGATIVE (NEGATIVE)
[2018-09-01 20:17] LABS: CHOLESTEROL/HDL RATIO 3.3
[2018-09-01 21:54] VITALS: BP 129/63
[2018-09-02 05:28] VITALS: BP 140/54
[2018-09-02 06:25] LABS: BASOPHIL % 0.2 % (0-2)
[2018-09-02 06:47] LABS: CALCIUM 8.9 mg/dL (8.5-10.1); CARBON DIOXIDE 28.2 mmol/L (21-32); CHLORIDE SERUM 106 mmol/L (98-107); GLUCOSE SERUM 92 mg/dL (74-106); MAGNESIUM 1.6 mg/dL (1.8-2.4); PHOSPHOROUS 2.9 mg/dL (2.5-4.9); POTASSIUM SERUM 3.3 mmol/L (3.5-5.1); SODIUM SERUM 144 mmol/L (136-145)
[2018-09-02 06:54] LABS: PLATELET COUNT 120 x10^3mcL (130-400)
[2018-09-02 08:35] VITALS: BP 89/41
[2018-09-02 12:39] VITALS: BP 132/53
[2018-09-02 13:09] LABS: RED BLOOD CELLS 3.11 M/mm3 (4.52-5.90)
[2018-09-02 14:05] LABS: IRON 61 ug/dL (65-170); TOTAL IRON BINDING CAPACITY 305 ug/dL (250-450)
[2018-09-02 17:22] VITALS: BP 127/55
[2018-09-02 21:10] VITALS: BP 136/53
[2018-09-03 05:22] VITALS: BP 106/59
[2018-09-03 07:28] LABS: CALCIUM 9.5 mg/dL (8.5-10.1); CARBON DIOXIDE 25.7 mmol/L (21-32); CHLORIDE SERUM 105 mmol/L (98-107); CREATININE SERUM 1.1 mg/dL (0.7-1.3); GLUCOSE SERUM 139 mg/dL (74-106); MAGNESIUM 1.8 mg/dL (1.8-2.4); PHOSPHOROUS 3.8 mg/dL (2.5-4.9); SODIUM SERUM 140 mmol/L (136-145)
[2018-09-03 08:13] LABS: BASOPHIL % 0.2 % (0-2)
[2018-09-03 08:24] LABS: PLATELET COUNT 129 x10^3mcL (130-400); RED CELL DISTRIBUTION WIDTH 15.2 % (11.5-14.5)
[2018-09-03 08:51] VITALS: BP 104/56
[2018-09-03 12:43] VITALS: BP 103/52
[2018-09-03 17:28] VITALS: BP 134/60
[2018-09-03 19:44] VITALS: BP 138/56
[2018-09-04 05:30] VITALS: BP 117/51
[2018-09-04 05:35] LABS: CALCIUM 9.6 mg/dL (8.5-10.1); CARBON DIOXIDE 27.6 mmol/L (21-32); CHLORIDE SERUM 106 mmol/L (98-107); GLUCOSE SERUM 93 mg/dL (74-106); POTASSIUM SERUM 3.7 mmol/L (3.5-5.1); SODIUM SERUM 140 mmol/L (136-145)
[2018-09-04 05:46] LABS: PLATELET COUNT 136 x10^3mcL (130-400)
[2018-09-04 07:17] LABS: BASOPHIL % 0 % (0-2); RED CELL DISTRIBUTION WIDTH 15.5 % (11.5-14.5)
[2018-09-04 09:22] VITALS: BP 135/58
[2018-09-04 09:24] VITALS: BP 122/48
[2018-09-04 16:45] VITALS: BP 124/47
[2018-09-04 20:04] VITALS: BP 129/53
[2018-09-05 05:29] VITALS: BP 102/49
[2018-09-05 07:05] LABS: BASOPHIL % 0.2 % (0-2)
[2018-09-05 07:12] LABS: CALCIUM 9.4 mg/dL (8.5-10.1); CARBON DIOXIDE 28.3 mmol/L (21-32); CHLORIDE SERUM 104 mmol/L (98-107); GLUCOSE SERUM 108 mg/dL (74-106); POTASSIUM SERUM 3.9 mmol/L (3.5-5.1); SODIUM SERUM 139 mmol/L (136-145)
[2018-09-05 07:16] LABS: PLATELET COUNT 127 x10^3mcL (130-400)
[2018-09-05 10:14] VITALS: BP 120/49
[2018-09-05 18:28] VITALS: BP 135/51
[2018-09-05 19:44] VITALS: BP 117/72
[2018-09-06 05:12] VITALS: BP 131/57
[2018-09-06 07:35] LABS: CALCIUM 9.1 mg/dL (8.5-10.1); CARBON DIOXIDE 29.4 mmol/L (21-32); CHLORIDE SERUM 104 mmol/L (98-107); GLUCOSE SERUM 113 mg/dL (74-106); POTASSIUM SERUM 3.9 mmol/L (3.5-5.1); SODIUM SERUM 138 mmol/L (136-145)
[2018-09-06 08:09] LABS: BASOPHIL % 0.4 % (0-2); PLATELET COUNT 139 x10^3mcL (130-400)
[2018-09-06 08:13] LABS: RED CELL DISTRIBUTION WIDTH 14.6 % (11.5-14.5)
[2018-09-06 09:30] VITALS: BP 127/50
[2018-09-06] MEDS ORDERED: CLINDAMYCIN HC300 MG PO (10:38)
[2018-09-06 14:24] VITALS: BP 127/50
== END 2018-09-06 15:34 | disposition home or self-care (01) | DRG 280 ==
LOC: ED 15:23 → DU 17:56 → MU 09-03 12:28
PROVIDERS: Internal Medicine Gastroenterology; Specialist; ADMIT Internal Medicine
DX: I21.A1 Myocardial infarction type 2 (principal); N17.0 Acute kidney failure with tubular necrosis; E43 Unspecified severe protein-calorie malnutrition; I50.43 Acute on chronic combined systolic (congestive) and diastolic (congestive) heart failure; D62 Acute posthemorrhagic anemia; L03.115 Cellulitis of right lower limb; J44.9 Chronic obstructive pulmonary disease, unspecified; I25.10 Atherosclerotic heart disease of native coronary artery without angina pectoris; E11.65 Type 2 diabetes mellitus with hyperglycemia; E83.42 Hypomagnesemia; D64.9 Anemia, unspecified; D69.6 Thrombocytopenia, unspecified; I11.0 Hypertensive heart disease with heart failure; Z68.28 Body mass index [BMI] 28.0-28.9, adult; Z79.899 Other long term (current) drug therapy; Z79.4 Long term (current) use of insulin; Z95.1 Presence of aortocoronary bypass graft; Z87.891 Personal history of nicotine dependence; Z79.84 Long term (current) use of oral hypoglycemic drugs; Z86.73 Personal history of transient ischemic attack (TIA), and cerebral infarction without residual deficits
CPT/HCPCS: 82962; 83880; J0690; J1815; J1940; J2543; J3370; J7030; J7040; J7050; P9016; Q0092; Q0163